=== PATIENT | female | born 1990 | race Caucasian/White ===

== ENCOUNTER 2021-01-13 10:55 | Emergency (ER) | payer SELFPAY ==
[2021-01-13 12:40] VITALS: BP 115/72; PULSE 67; TEMP 98.4; BMI 29.2
== END 2021-01-13 13:26 | disposition home or self-care (01) ==
LOC: JERFT 10:55
DX: K08.89 Other specified disorders of teeth and supporting structures (principal)
CPT/HCPCS: 99283-25